=== PATIENT | male | born 1970 | race Caucasian/White ===

== ENCOUNTER 2019-10-12 10:46 | Emergency (ER) | payer MEDICARE, MEDICAID, SELFPAY ==
--- NOTE | ~2019-10-12 | CT_ITS ---
EXAMINATION: CT lumbar spine wo [facility] EXAM DATE: 10/12/2019 11:40 INDICATION: No known recent injury provided at this time. Pain of the low back. TECHNIQUE: Spiral CT of the lumbar spine was performed without contrast. Axial, coronal and sagittal images were reviewed. The dose-length product (DLP) for this examination was 371.33 mGy-cm. The e xposure was tailored according to patient size (auto mA exposure control), and iterative reconstructi on (ASIR) was used as additional dose reduction technique. There is no prior study for comparison. FINDINGS: There is moderate loss of the disc heights from L3-S1, mild at the upper lumbar levels. The re is 3 mm retrolisthesis. The vertebral bodies are otherwise aligned. There is no spondylolysis. The re are no acute fractures identified. There is mild symmetric bilateral sacroiliac primary osteoart hritis. Mild sigmoid diverticulosis. Level by level evaluation: T12-L1: Disc does not extend beyond the endplate margin. Facet arthropathy: None. Neural foraminal stenosis: No stenosis. Central canal stenosis: No stenosis. L1-L2: There is a minimal diffuse disc bulge. Facet arthropathy: Mild. Neural foraminal stenosis: No stenosis. Central canal stenosis: No stenosis. L2-L3: There is a mild diffuse disc bulge. Facet arthropathy: Mild. Neural foraminal stenosis: Mild bilateral. Central canal stenosis: No stenosis. L3-L4: There is a mild to moderate diffuse disc bulge. Facet arthropathy: Mild. Neural foraminal stenosis: Mild to moderate bilateral. Central canal stenosis: Mild. L4-L5: There is a moderate diffuse disc bulge. Facet arthropathy: Mild to moderate. Neural foraminal stenosis: Moderate bilateral. Central canal stenosis: Mild to moderate. L5-S1: There is a moderate diffuse disc bulge. Facet arthropathy: Moderate. Neural foraminal stenosis: Mild to moderate right, mild to moderate left. Central canal stenosis: Mild to moderate. IMPRESSION: 1. Mild to moderate lumbar spondylosis. 2. No acute findings. Reviewed, dictated and finalized at location A. [employer]ARDWARE ANALYST
--- NOTE | 2019-10-12 11:13 | ED.BACK ---
HPI - Back Pain/Injury General Chief Complaint: Extremity Problem,Nontraumatic Stated Complaint: leg pain Time Seen by Provider: 10/12/19 10:47 Source: patient Mode of arrival: ambulatory Limitations: no limitations History of Present Illness HPI Narrative: This is a 49 year old male that presents to the ER for low back pain x 3 weeks. Reports history of bulging discs and low back pain. Reports no recent injury or trauma. Reports for the last couple weeks he has been getting shooting pains down his legs. Also reports tingling in his legs. Reports worsening over the last couple days. Denies fever, saddle anesthesia, or bowel/bladder incontinence. Related Data Allergies Allergy/AdvReac Type Severity Reaction Status Date / Time cephalexin Allergy Severe ANAPHYLAXIS Verified 02/07/19 06:05 ciprofloxacin Allergy Unknown Anaphylaxis Verified 10/12/19 11:17 hydroxyzine Allergy Unknown Unknown Verified 10/12/19 11:17 C[place] ROLLS Allergy Unknown RESPIRATORY Uncoded 11/16/18 13:23 DISTRESS (C[place]ON) Review of Systems Review of Systems: Narrative: CONSTITUTIONAL: Denies fever MUSCULOSKELETAL: Reports back pain, joint pain, and myalgia. NEUROLOGIC: Denies numbness, or weakness. All systems reviewed & are unremarkable except as noted in HPI and below PMFSH Past Medical History Medical History (Updated 10/12/19 @ 12:29 by Ana Myrick PA-C) History of depression History of gastroesophageal reflux (GERD) Family History Family History (Updated 11/15/18 @ 10:10 by DOCTOR UNKNOWN) Other Family history of arthritis Social History Social History (Updated 10/12/19 @ 11:44 by Ana Myrick PA-C) Substance use type: marijuana Gender identity (if verbalized by the patient): Male Exam Narrative: Exam Narrative: GENERAL: Well-appearing, well-nourished, and in no acute distress. HEAD: Normocephalic, atraumatic. EYES: EOMI. CHEST: Clear to auscultation. No respiratory distress. No wheezes rales or rhonchi HEART: Regular rate and rhythm. No murmur heard. Normal peripheral pulses. BACK: No midline spinal tenderness EXTREMITIES: Normal range of motion. No edema. Strength equal in bilateral lower extremities (5/5) SKIN: Warm, dry, no rash. NEURO: No focal deficits. Alert and oriented x3. Normal gait PSYCH: Normal mood and affect Course Vital Signs Vital signs: Vital Signs Temperature 98.7 F 10/12/19 11:15 Pulse Rate 69 10/12/19 11:15 Respiratory Rate 18 10/12/19 11:15 Blood Pressure 101/82 10/12/19 11:15 Pulse Oximetry 100 10/12/19 11:15 Temperature 98.7 F 10/12/19 11:15 Pulse Rate 69 10/12/19 11:15 Respiratory Rate 18 10/12/19 11:15 Blood Pressure 101/82 10/12/19 11:15 Pulse Oximetry 100 10/12/19 11:15 MDM - Back Pain/Injury MDM Narrative Medical decision making narrative: Patient presents the emergency department for low back pain x3 weeks. No known injury or trauma. Also reports pain and tingling down his legs. He is neurologically intact. Denies any bowel or bladder incontinence. Lumbar CT shows mild to moderate lumbar spondylosis, no acute findings. Patient is seeing a spine surgeon for his neck, he was instructed to follow-up with spine surgeon for his low back. Patient was instructed to take his home pain medication as prescribed. He is to follow-up with his primary care doctor and spine surgeon. Patient was given warnings to return to the ER Imaging Data Radiologist's impression: ITS Impressions Lumbar Spine CT 10/12/19 11:51 IMPRESSION: 1. Mild to moderate lumbar spondylosis. 2. No acute findings. Critical Care Time Critical Care Time Critical Care Time: No Discharge Plan Discharge Clinical Impression: Bilateral lumbar radiculopathy Patient Disposition: Home, Self-Care Condition: Stable Instructions: Lumbar Radiculopathy (ED) Additional Instructions: Return to the ER if you experience weakness, numbne
[2019-10-12 11:15] VITALS: BP 101/82; PULSE 69; RESP 18; TEMP 37.1; O2SAT 100
[2019-10-12] MEDS: KETOROLAC (*BKC) 60 MG/2 ML VIAL IM (11:46)
[2019-10-12] MEDS: DIAZEPAM 5 MG TABLET PO (11:46)
== END 2019-10-12 12:40 | disposition home or self-care (01) ==
PROVIDERS: Emergency Provider Family Medicine; PCP Nurse Practitioner Family
DX: M47.26 Other spondylosis with radiculopathy, lumbar region (principal); K21.9 Gastro-esophageal reflux disease without esophagitis
CPT/HCPCS: 72131; 96372; 99284; A9270; J1885

== ENCOUNTER 2020-06-30 06:44 | Outpatient (NON) | payer MEDICARE, MEDICAID, SELFPAY ==
[2020-07-01 02:42] LABS: SARS-CoV-2 RNA PCR Negative
== END 2020-06-30 06:45 ==
LOC: ANHCOVIDDT 07:02
PROVIDERS: PCP Nurse Practitioner Family; Visit Provider Nurse Practitioner Family
DX: Z20.828 Contact with and (suspected) exposure to other viral communicable diseases (principal); R05 Cough; R43.2 Parageusia
CPT/HCPCS: 87635; C9803; U0003

== ENCOUNTER 2021-09-24 00:43 | Day surgery (SDC) | payer MEDICARE, MEDICAID, SELFPAY ==
--- NOTE | 2021-09-11 14:59 | PC.NURSE ---
Pt denies any changes in health assessment.
[2021-09-24 09:29] VITALS: BP 104/74; PULSE 80; RESP 18; TEMP 36.4; O2SAT 98
[2021-09-24] MEDS: LACTATED RINGERS 1,000 ML 150 ML IV CONT (09:42)
--- NOTE | 2021-09-24 09:42 | WPDGICN ---
Assessment and Plan Assessment and plan (1) Positive colorectal cancer screening using Cologuard test: Code(s): R19.5 - Other fecal abnormalities Status: Acute Assessment and Plan: Patient had stool Cologuard test that was positive. For this reason screening colonoscopy to be performed today. GI Consult Note Consult date/time: 09/24/21 09:42 HPI: Rhys Snowden is a 51 year old male Presents for screening colonoscopy. Patient's current weight appetite bowel movements are normal. He denies abdominal pain. He has had no bleeding. Family history is noncontributory. Patient recently had screening Cologuard test that was positive. He presents today for neoplasia screening colonoscopy. Review of Systems Review of Systems: All systems reviewed & are unremarkable except as noted in HPI and below PMFSH Past Medical History Medical History (Updated 09/24/21 @ 09:43 by Enoch Murdock MD) History of depression History of gastroesophageal reflux (GERD) Family History Family History (Updated 11/15/18 @ 10:10 by DOCTOR UNKNOWN) Other Family history of arthritis Social History Social History (Updated 10/12/19 @ 11:44 by Ana Myrick PA-C) Years smoked: 42 Smoking status: Former smoker Tobacco type: cigarettes Alcohol intake: current Drinks per week: 7 Substance use: current Substance use type: marijuana Last use: 08/19/21 Living arrangements: with family Gender identity (if verbalized by the patient): Male Spiritual care concerns: No Meds Home Medications and Allergies Home Medications Medication Instructions Recorded Confirmed Type alprazolam [Xanax] 1 mg PO TID PRN 08/20/21 08/20/21 History baclofen 20 mg PO TID 08/20/21 08/20/21 History famotidine 20 mg PO BID 08/20/21 08/20/21 History hydrocodone-acetaminophen 1 tablet PO Q6H PRN 08/20/21 08/20/21 History ibuprofen 800 mg PO TID PRN 08/20/21 08/20/21 History lamotrigine [Lamictal] 50 mg PO HS 08/20/21 08/20/21 History propranolol 20 mg PO Q12H 08/20/21 08/20/21 History ziprasidone HCl 40 mg PO DAILY 08/20/21 08/20/21 History zolpidem [Ambien] 10 mg PO HS PRN 08/20/21 08/20/21 History Allergies Allergy/AdvReac Type Severity Reaction Status Date / Time cephalexin Allergy Severe ANAPHYLAXIS Verified 09/24/21 09:27 ciprofloxacin Allergy Unknown Anaphylaxis Verified 09/24/21 09:27 hydroxyzine Allergy Unknown Unknown Verified 09/24/21 09:27 [place] ROLLS Allergy Unknown RESPIRATORY Uncoded 09/24/21 09:27 DISTRESS ([place]) Vital Signs Vital Signs - 24 hr 09/24/21 09:29 Temperature 97.5 F L Pulse Rate 80 Respiratory Rate 18 Blood Pressure 104/74 Pulse Oximetry 98 Exam Narrative: Physical exam reveals patient to be alert. Vital signs stable. HEENT exam is unremarkable. Patient is anicteric. Lungs are clear to auscultation and percussion. Heart is without murmur or extra sounds. Abdomen bowel sounds are present soft nontender with no organomegaly. Digital external rectal exam is normal.
--- NOTE | 2021-09-24 09:46 | WPDANESEPPF ---
Anes - Initial Pre Proc Eval Procedure: Operation Date: 09/24/21 11:00 Proposed Procedures p Colonoscopy - Enoch Murdock MD Date/Time: 09/24/21 09:46 Surgeon: Enoch Murdock MD Pre Op Diagnosis: positive cologuard Patient Data Age: 51 Gender: M Height: Weight: 80 kg Last Vital Signs Temp 36.4 C L 09/24/21 09:29 Pulse 80 09/24/21 09:29 Resp 18 09/24/21 09:29 BP 104/74 09/24/21 09:29 Pulse Ox 98 09/24/21 09:29 Allergies Allergy/AdvReac Type Severity Reaction Status Date / Time cephalexin Allergy Severe ANAPHYLAXIS Verified 09/24/21 09:27 ciprofloxacin Allergy Unknown Anaphylaxis Verified 09/24/21 09:27 hydroxyzine Allergy Unknown Unknown Verified 09/24/21 09:27 [place] ROLLS Allergy Unknown RESPIRATORY Uncoded 09/24/21 09:27 DISTRESS ([place]) Home Medications Medication Instructions Recorded Confirmed Type alprazolam [Xanax] 1 mg PO TID PRN 08/20/21 08/20/21 History baclofen 20 mg PO TID 08/20/21 08/20/21 History famotidine 20 mg PO BID 08/20/21 08/20/21 History hydrocodone-acetaminophen 1 tablet PO Q6H PRN 08/20/21 08/20/21 History ibuprofen 800 mg PO TID PRN 08/20/21 08/20/21 History lamotrigine [Lamictal] 50 mg PO HS 08/20/21 08/20/21 History propranolol 20 mg PO Q12H 08/20/21 08/20/21 History ziprasidone HCl 40 mg PO DAILY 08/20/21 08/20/21 History zolpidem [Ambien] 10 mg PO HS PRN 08/20/21 08/20/21 History Patient hx anesthesia problems: none Family hx anesthesia problems: none Results Review: All pre-operative results and documents have been reviewed as part of the pre-operative evaluation. [facility] Past Medical History Medical History Chronically on opiate therapy COPD (chronic obstructive pulmonary disease) History of depression History of gastroesophageal reflux (GERD) Family History Family History Other Family history of arthritis Social History Social History Years smoked: 42 Smoking status: Former smoker Tobacco type: cigarettes Alcohol intake: current Drinks per week: 7 Substance use: current Substance use type: marijuana Last use: 08/19/21 Living arrangements: with family Gender identity (if verbalized by the patient): Male Spiritual care concerns: No Anes - Eval Final PreProcedure Day of Procedure 09/24/21 09:46 Patient weight: normal Heart: regular rate and rhythm Lungs: decreased breath sounds Airway: Mallampati scale class II Neurological: alert and oriented Last oral intake: >/= 8 hours ASA classification: III Emergent: no Anesthetic plan: proceed Anesthesia type and monitoring: general GIVS and standard monitoring Results Review: All pre-operative results and documents have been reviewed as part of the pre-operative evaluation. Informed Consent: The patient's anesthetic plan and its attendant risks and benefits were discussed with the patient/family/POA. Questions were solicited and answers provided to the satisfaction of the patient/family/POA.
[2021-09-24 10:28] VITALS: BP 109/78; PULSE 55; RESP 17; O2SAT 100
[2021-09-24 10:38] VITALS: BP 106/73; PULSE 57; RESP 14; O2SAT 100
[2021-09-24 10:48] VITALS: BP 112/74; PULSE 55; RESP 19; O2SAT 100
== END 2021-09-24 10:58 | disposition home or self-care (01) ==
PROVIDERS: PCP Nurse Practitioner Family; Visit Provider Internal Medicine Gastroenterology
PROC: 0DJD8ZZ Inspection of Lower Intestinal Tract, Via Natural or Artificial Opening Endoscopic (ICD-10-PCS; CPT 45378; principal; 2021-09-24 11:00)
DX: Z12.11 Encounter for screening for malignant neoplasm of colon (principal); R19.5 Other fecal abnormalities; K64.8 Other hemorrhoids; J44.9 Chronic obstructive pulmonary disease, unspecified; K21.9 Gastro-esophageal reflux disease without esophagitis; F32.9 Major depressive disorder, single episode, unspecified; Z79.891 Long term (current) use of opiate analgesic; Z87.891 Personal history of nicotine dependence; F12.90 Cannabis use, unspecified, uncomplicated
CPT/HCPCS: G0121; J2704; J7120

== ENCOUNTER 2023-07-06 10:56 | Outpatient (CLI) | payer MEDICARE, MEDICAID, SELFPAY ==
--- NOTE | ~2023-07-06 | US_ITS ---
EXAMINATION: US arterial ankle brachial ind DATE: 07/06/2023 13:28 INDICATION: Peripheral vascular disease. TECHNIQUE: Segmental pressures and plethysmographic and Doppler waveforms of the brachial and lower e xtremity arteries were obtained. COMPARISON: None. FINDINGS: Right and left brachial artery pressures of 99 mm Hg and 102 mm Hg, respectively, are concordant (nor mal difference <= 30 mmHg). The right ankle-brachial index (NICK) is 1.31 (normal >= 0.9-1.0). The right great toe-brachial index (TBI) is 0.71 (normal >= 0.65). Arterial Doppler waveforms are at least triphasic in posterior tibial artery and biphasic in dorsalis pedis. The left NICK is 1.25. The left TBI is 0.56. Arterial Doppler waveforms are biphasic at the ankle. IMPRESSION: 1. Mildly decreased left TBI and normal left NICK, consistent with left-sided arterial occlusive disea se. 2. No significant right-sided arterial occlusive disease. Reviewed, dictated and finalized at location A. [employer] IMPRESSION: 1. Mildly decreased left TBI and normal left NICK, consistent with left-sided ar terial occlusive disease. 2. No significant right-sided arterial occlusive disease.
== END 2023-07-06 10:57 | disposition home or self-care (01) ==
PROVIDERS: PCP Nurse Practitioner Family; Visit Provider Nurse Practitioner Family
DX: I73.9 Peripheral vascular disease, unspecified (principal); I83.813 Varicose veins of bilateral lower extremities with pain; M79.662 Pain in left lower leg
CPT/HCPCS: 93922

== ENCOUNTER → 2023-10-27 08:15 | Outpatient (CLI) | payer MEDICARE, MEDICAID, SELFPAY ==
--- NOTE | ~2023-10-27 | CT_ITS ---
EXAMINATION: CT lung screening DATE: 10/27/2023 08:30 INDICATION: Personal history nicotine dependence, prior smoker with 35 pack year history TECHNIQUE: Computed tomography (CT) of the chest was performed without intravenous contrast. The dose -length product (DLP) was 108.20 mGy-cm. Automated exposure control and iterative reconstruction tech [employer]YoDe[employer] were employed. COMPARISON: None FINDINGS: There is moderate emphysema. No suspicious pulmonary nodules are identified. There is mild dependent atelectasis of the lungs. The lungs are free of focal airspace opacities. No pleural effusi on or pneumothorax. No pathologically enlarged thoracic lymph nodes are identified. The heart size is normal. There is mild thoracic spondylosis. There are partially imaged surgical changes at the cervi cothoracic junction. IMPRESSION: 1. Lung-RADS category 1: Negative. Continue annual screening with noncontrast low-dose chest CT in 12 months. Reviewed, dictated and finalized at location L. PULLER IMPRESSION: 1. Lung-RADS category 1: Negative. Continue annual screening with noncontrast l ow-dose chest CT in 12 months.
== END ==
PROVIDERS: PCP Nurse Practitioner Family; Visit Provider Nurse Practitioner Family
DX: Z12.2 Encounter for screening for malignant neoplasm of respiratory organs (principal); F17.210 Nicotine dependence, cigarettes, uncomplicated
CPT/HCPCS: 71271